=== PATIENT | male | born 1980 | race Caucasian/White ===

== ENCOUNTER 2017-04-20 16:40 | Observation (INO) | payer OTHER ==
[2017-04-20] MEDS ORDERED: ERTAPENEM 1 GM in NS 100 ML IV ONE (16:55)
[2017-04-20] MEDS ORDERED: ONDANSETRON 4 MG/2 ML VIAL IVP ONE (17:25)
[2017-04-20] MEDS ORDERED: HYDROmorphONE/DILAUDID 1 MG/ML INJ IVP ONE (17:25)
[2017-04-20] MEDS ORDERED: NS 1,000 ML IV ONE ×2 (17:25)
--- NOTE | 2017-04-20 17:29 | EDPHY ---
H & P Stated Complaint: appy. ct already done. Time Seen by Provider: 04/20/17 16:51 - Medical/Surgical History Other PMH: denies. - Social History Smoking Status: Never smoked Constitutional: Initial Vital Signs Temperature (C) 36.7 C 04/20/17 16:46 Heart Rate 92 04/20/17 16:46 Respiratory Rate 18 04/20/17 16:46 Blood Pressure 130/92 H 04/20/17 16:46 O2 Sat (%) 96 04/20/17 16:46 O2 Delivery Mode Room Air Allergies/Adverse Reactions: No Known Allergies Allergy (Unverified 04/20/17 16:48) Medical Decision Making ED Course/Re-evaluation: CHIEF COMPLAINT: Acute appendicitis HISTORY OF PRESENT ILLNESS: 36-year-old gentleman who developed right lower quadrant pain yesterday. He got some nausea but thought the pain would resolve. He presented to his primary care doctor this morning Dr. Raza Layton. Dr. Layton ordered a CT scan and he was positive for appendicitis. He has a slightly elevated white blood cell count. He has not had a anything to eat or drink today. His pain is moderate. His nausea is moderate. He has never had any abdominal surgeries. REVIEW OF SYSTEMS: A 10 point review of systems was performed and is negative with the exception of the elements mentioned in the history of present illness. PHYSICAL EXAM: HR, BP, O2 Sat, RR. Temp noted General Appearance: Alert, well hydrated, appropriate, and non-toxic appearing. Head: Atraumatic without scalp tenderness or obvious injury Eyes: Pupils equal, round, reactive to light and accommodation, EOMI, no trauma , no injection. Ears: Clear bilaterally, no perforation, normal landmarks Nose: Atraumatic, no rhinorrhea, clear. Throat: There is no erythema or exudates, no lesions, normal tonsils, mucus membranes moist. Neck: Supple, 2+ carotid upstroke, nontender, no lymphadenopathy. Respiratory: No retractions, no distress, no wheezes, and no accessory muscle use. Lungs are clear to auscultation bilaterally. Cardiovascular: Regular rate and rhythm, no murmurs, rubs, or gallops. Bilateral carotid, radial, dorsalis pedis, and posterior tibial pulses intact. Good capillary refill all extremities. Gastrointestinal: Abdomen is soft, tenderness in the right lower quadrant, non- distended, no masses, no rebound, no guarding, no peritoneal signs. Musculoskeletal: Normal active ROM of all extremities, atraumatic. Neurological: Alert, appropriate, and interactive. The patient has normal DTRs and non-focal cranial nerves, motor, sensory, and cerebellar exam. Skin: No rashes, good turgor, no nodules on palpation. Past medical history: None Past surgical history: None Family history: Noncontributory Social history: , employed, does not abuse tobacco drugs or alcohol DIAGNOSTICS/PROCEDURES/CRITICAL CARE TIME: Study: CT of the abdomen and pelvis with IV contrast Indication: right lower quadrant pain Results: CT scan of the abdomen and pelvis was obtained. The results of the study are acute appendicitis. The study was read by the radiologist, . reported to me by Raza Layton. I viewed the images myself on the PACS system. DIFFERENTIAL DIAGNOSIS: The differential diagnosis for the patient's abdominal pain included but was not limited to appendicitis, cholecystitis, hernias, testicular torsion, gastritis, and urinary tract infection. MEDICAL DECISION MAKING: This patient has acute appendicitis. He is in no distress. I have given her 2 L of fluid, 1 g of ertapenem, 1 mg of Dilaudid, 4 mg Zofran intravenously. I have paged surgery. - Data Points Medications Given: Discontinued Medications Ertapenem 1 gm/ Sodium (Chloride) 100 mls @ 200 mls/hr IV EDNOW ONE PRN Reason: Protocol Stop: 04/20/17 17:24 Last Admin: 04/20/17 17:23 Dose: 100 mls Departure - Departure Disposition: Home, Routine, Self-Care Clinical Impression: Acute appendicitis Qualifiers: Acute appendicitis type: with localized peritonitis Qualified Code(s): K35.3 - Acute appendicitis with localized peritonitis Condition: Fair Referrals: Raza Layton MD [Primary Care Provider] - As per Instructions
--- NOTE | 2017-04-20 19:21 | PDHPUP ---
History & Physical Update H&P update statement: This history and physical update is based on an assessment of the patient which was completed after admission or registration (within 24 hours), but prior to the surgery/procedure. H&P update: H&P reviewed & patient examined, no change in patient's condition since H&P completed
[2017-04-20] MEDS ORDERED: ceFAZolin 1 GM VIAL ONE (19:25)
[2017-04-20] MEDS ORDERED: BUPIVACAINE 0.5% 30 ML SDV ONE (19:25)
[2017-04-20] MEDS ORDERED: HEPARIN 1000 UNIT/1 ML MDV ONE (19:25)
--- NOTE | 2017-04-20 19:26 | PDGENHP ---
History & Physical Chief Complaint: RLQ PAIN History of Present Illness: 31 MALE WITH [address] + FOR ACUTE APPE / WBC UP/ADMIT FOR LAP APPE/ RISKS AND OPTIONS FULLY DISCUSSED Pertinent Past, Social, Family History: ORIF ANKLE/ GOUT. MEDS ALLOPURINOL. NKA. ROS -. FAM HX - Relevant Physical Exam: HEENT NONICTERIC, NO NODES. GEN AFEBRILE. CHEST CLEAR / COR RR. ABD TENDER RLQ. NO HERNIAS. EXTR OK. NEURO OK. SKIN NO LESIONS. GEN AFEBRILE Cardiorespiratory Assessment: IMPR ACUTE APPE. PLAN LAP APPE/ RISKS AND OPTIONS FULLY DISCUSSED
[2017-04-20] MEDS ORDERED: MIDAZOLAM 2 MG/2 ML VIAL IVP ONE (20:26)
--- NOTE | 2017-04-20 20:28 | PDANEPAE ---
ANE History of Present Illness lap appy for acute appendicitis ANE Past Medical History - Endocrine History Endocrine History Comment: Gout ANE Review of Systems Review of Systems: - Exercise capacity Exercise capacity: >=4 METS ANE Patient History - Allergies Allergies/Adverse Reactions: No Known Allergies Allergy (Verified 04/20/17 18:29) - Home Medications Home medications: home medication list seen and reviewed Home Medications: Allopurinol [Allopurinol 300 MG (RX)] 300 mg PO HS 04/20/17 [Last Taken 04/19/17 ] Ibuprofen [Motrin (*)] 200 - 600 mg PO DAILY PRN 04/20/17 [Last Taken Unknown] Naproxen Sodium [Aleve 220 MG (*)] 220 mg PO BID PRN 04/20/17 [Last Taken Unknown] - NPO status NPO Status: no food or drink >8 hours NPO Since - Liquids (Date): 04/20/17 NPO Since - Liquids (Time): 08:00 NPO Since - Solids (Date): 04/20/17 NPO Since - Solids (Time): 09:00 - Anes Hx Anes Hx: no prior problems - Smoking Hx Smoking Status: Never smoked - Alcohol Use Alcohol Use: Occasionally - Family Anes Hx Family Anes Hx: none ANE Labs/Vital Signs - Vital Signs Blood Pressure: 128/84 Heart Rate: 78 Respiratory Rate: 16 O2 Sat (%): 97 Height: 175.26 cm Weight: 90.718 kg ANE Physical Exam - Airway Neck exam: FROM Mallampati Score: Class 1 Mouth exam: normal dental/mouth exam - Pulmonary Pulmonary: no respiratory distress - Cardiovascular Cardiovascular: regular rate and rhythym - ASA Status ASA Status: II, E ANE Anesthesia Plan Anesthesia Plan: general endotracheal anesthesia (R/B/A explained and agrees to proceed)
[2017-04-20] MEDS ORDERED: PROPOFOL/EMULSION 500 MG/50 ML BOTTLE IV ONE (20:35)
[2017-04-20] MEDS ORDERED: fentaNYL 100 MCG/2 ML INJ ONE (20:35)
--- NOTE | 2017-04-20 20:36 | POSTOPPROG ---
Post Op Note Date of Operation: 04/20/17 Surgeon: James Acosta Anesthesiologist: MICHAEL Anesthesia: GET(General Endotracheal) Pre-op Diagnosis: ACUTE APPE Post-op Diagnosis: SAME Indication: PAIN Procedure: LAP APPE Findings: ACUTE, NONPERFORATED APPE Inf/Abcess present in the surg proc area at time of surgery?: Yes Depth: Organ Space EBL: Minimal Complications: 0 Specimen(s): APPENDIX
[2017-04-20] MEDS ORDERED: DEXAMETHASONE 4 MG/ML VIAL ONE ×2 (20:37)
[2017-04-20] MEDS ORDERED: LIDOCAINE 2% 100 MG/5 ML SYR ONE (20:37)
[2017-04-20] MEDS ORDERED: ROCURONIUM 50 MG/5 ML VIAL ONE (20:37)
[2017-04-20] MEDS ORDERED: ONDANSETRON 4 MG/2 ML VIAL ONE (20:37)
[2017-04-20] MEDS ORDERED: KETOROLAC 30 MG/1 ML SDV ONE (20:37)
[2017-04-20] MEDS ORDERED: LIDOCAINE HCL 160 MG/4 ML LTA KIT TP ONE (20:38)
[2017-04-20] MEDS ORDERED: SUGAMMADEX SODIUM 200 MG/2 ML VIAL IVP ONE (21:26)
[2017-04-20] MEDS ORDERED: MEPERIDINE 25 MG/ML SYR IVP PRN (21:36)
[2017-04-20] MEDS ORDERED: ACETAMINOPHEN 500 MG TAB PO PRN (21:36)
[2017-04-20] MEDS ORDERED: LABETALOL HCL 5 MG/ML 20 ML MDV IVP PRN (21:36)
[2017-04-20] MEDS ORDERED: ONDANSETRON 4 MG/2 ML VIAL IVP PRN (21:36)
[2017-04-20] MEDS ORDERED: LR 500 ML IV PRN (21:36)
[2017-04-20] MEDS ORDERED: METOCLOPRAMIDE 10 MG/2 ML VIAL IVP PRN (21:36)
[2017-04-20] MEDS ORDERED: DEXAMETHASONE 4 MG/ML VIAL IVP PRN (21:36)
[2017-04-20] MEDS ORDERED: OXYCODONE/APAP 5/325 TAB PO PRN (21:36)
[2017-04-20] MEDS ORDERED: ALBUTEROL 3 ML DEYVIAL IH PRN (21:36)
[2017-04-20] MEDS ORDERED: NALOXONE HCL 0.4 MG/ML INJ IVP PRN (21:36)
[2017-04-20] MEDS ORDERED: PROMETHAZINE HCL 25 MG/ML INJ IVP PRN (21:36)
[2017-04-20] MEDS ORDERED: HYDROCODONE/APAP 5/325 TAB PO PRN (21:36)
--- NOTE | 2017-04-20 21:51 | POSTANESTH ---
Post Anesthetic Evaluation Cardiovascular Status: Normal, Stable Respiratory Status: Normal, Stable Level of Consciousness/Mental Status: Can Participate in Eval Pain Control: Adequate, Prn Tx Ordered Nausea/Vomiting Control: Adequate, Prn Tx Ordered Complications Possibly Related to Anesthesia: None Noted
[2017-04-20] MEDS: fentaNYL 100 MCG/2 ML INJ IVP PRN ×2 (21:54→21:59)
[2017-04-20] MEDS ORDERED: D5W 1/2 NS W/ 20 KCl/L 1,000 ML IV SCH (22:00)
[2017-04-20] MEDS: HYDROmorphONE/DILAUDID 1 MG/ML INJ IVP PRN (22:56)
[2017-04-21] MEDS: KETOROLAC 15 MG/1 ML SDV IVP SCH ×3 (00:28→11:31)
[2017-04-21] MEDS ORDERED: ERTAPENEM 1 GM in NS 100 ML IV SCH (09:00)
[2017-04-21] MEDS: OXYCODONE/APAP 5/325 TAB PO PRN ×2 (09:13→13:11)
--- NOTE | 2017-04-21 10:50 | SOAPPROG ---
SOAP Progress Note Assessment/Plan: Assessment: DOING WELL/ AFEBRILE/ WOUNDS OK/ ABD SOFT/ EATING Plan:HOME 04/21/17 10:50 Objective: Vital Signs Temp Pulse Resp BP Pulse Ox 36.7 C 69 15 106/61 96 04/21/17 07:56 04/21/17 07:56 04/21/17 07:56 04/21/17 07:56 04/21/17 07:56 04/20/17 04/21/17 04/22/17 05:59 05:59 05:59 Intake Total 3300 Output Total 27 Balance 3273 ICD10 Worksheet Patient Problems: Problems Problem Status Onset Acute appendicitis Acute
[2017-04-21 11:23] VITALS: BP 113/56; PULSE 79; RESP 18; TEMP 97.9; O2SAT 94
[2017-04-21] MEDS: HYDROmorphONE/DILAUDID 1 MG/ML INJ IVP PRN (12:14)
--- NOTE | 2017-04-21 15:11 | ASDISCHSUM ---
Discharge Information Plan Status:Home with No Needs Medically Cleared to Leave:04/21/2017 Discharge Date:04/21/2017 01:23 PM CM D/C Disposition: ADT D/C Disposition:Home, Routine, Self-Care Projected Discharge Date:04/21/2017 12:00 AM Transportation at D/C: Discharge Delay Reason: Follow-Up Date:04/21/2017 12:00 AM Discharge Slot: Final Diagnosis: Placement Information Patient Contact Information Contact Name:JOHN Relationship: Address: Home Phone: Work Phone: City: Alternate Phone: State/CardioLogs Code: Email: Financial Information Financial Class:HMO and PPO Plans Primary Plan Desc:[facility] Primary Plan Number:[id number] Secondary Plan Desc: Secondary Plan Number: Assessment Information Intervention Information
[2017-04-21] MEDS ORDERED: ALLOPURINOL 300 MG TAB PO SCH (21:00)
== END 2017-04-21 13:23 | disposition home or self-care (01) ==
LOC: F3E 22:25
PROVIDERS: ADMIT Surgery; ATTEND Surgery
PROC: 0DTJ4ZZ Resection of Appendix, Percutaneous Endoscopic Approach (ICD-10-PCS; principal; 2017-04-20 19:00)
DX: K35.80 Unspecified acute appendicitis (principal); I42.2 Other hypertrophic cardiomyopathy; M10.9 Gout, unspecified
CPT/HCPCS: 44970; G0378; 96365; J0690; J1100; J1170; J1335; J1885; J2001; J2250; J2405; J2704; J3010

== ENCOUNTER → 2017-04-20 | Outpatient (CLI) | payer OTHER ==
[~2017-04-20] MED LIST: IOPAMIDOL (ISOVUE-300) 100 ML BTL ONE; fentaNYL 100 MCG/2 ML INJ ONE
== END ==
LOC: CIMAGING 13:47
PROVIDERS: ATTEND Internal Medicine
DX: K37 Unspecified appendicitis (principal)
CPT/HCPCS: 74177-PO; J3010; Q9967

== ENCOUNTER 2017-09-02 13:00 | Observation (INO) | payer OTHER ==
--- NOTE | 2017-10-12 08:47 | PDANEPAE ---
ANE History of Present Illness UPP ANE Past Medical History - Cardiovascular History Hx Hypertension: No Hx Arrhythmias: No Hx Chest Pain: No Hx Coronary Artery / Peripheral Vascular Disease: No Hx CHF / Valvular Disease: No Hx Palpitations: No Cardiovascular History Comment: Hypertrophic cardiomyopathy - Pulmonary History Hx COPD: No Hx Asthma/Reactive Airway Disease: No Hx Recent Upper Respiratory Infection: No Hx Oxygen in Use at Home: No Hx Sleep Apnea: Yes Sleep Apnea Screening Result - Last Documented: Positive Pulmonary History Comment: Severe CELINA does not use CPAP - Neurologic History Hx Cerebrovascular Accident: No Hx Seizures: No Hx Dementia: No - Endocrine History Hx Diabetes: No Obesity: mild Endocrine History Comment: Gout - Renal History Hx Renal Disorders: No - Liver History Hx Hepatic Disorders: No - Neurological & Psychiatric Hx Hx Neurological and Psychiatric Disorders: No - Cancer History Hx Cancer: No - Congenital Disorder History Hx Congenital Disorders: No - GI History GERD: mild Hx Gastrointestinal Disorders: Yes Gastrointestinal History Comment: GERD - Other Health History Other Health History: none - Chronic Pain History Chronic Pain: No - Surgical History Prior Surgeries: Appendectomy 2017 ANE Review of Systems Review of Systems: - Exercise capacity METS (RN): 4 METS - Systems Respiratory: Reports: other ANE Patient History - Allergies Allergies/Adverse Reactions: No Known Allergies Allergy (Verified 10/09/17 12:36) - Home Medications Home Medications: Allopurinol [Allopurinol 300 MG (RX)] 300 mg PO HS 04/20/17 [Last Taken 10/11/17 ] Finasteride [Propecia] 1 mg PO HS 08/14/17 [Last Taken 10/11/17] Multivitamins [Multivitamin (*)] 1 each PO DAILY 08/14/17 [Last Taken 10/05/17] [place]-3 Fatty Acids [Fish Oil 1000 mg (*)] 1,000 mg PO DAILY 08/14/17 [Last Taken 10/05/17] - NPO status NPO Status: no food or drink >8 hours - Smoking Hx Smoking Status: Never smoked - Family Anes Hx Family Hx Anesthesia Complications: none ANE Labs/Vital Signs - Vital Signs Height: 175.26 cm Weight: 88.451 kg ANE Physical Exam - Airway Mallampati Score: Class 1 Mouth exam: normal dental/mouth exam - Pulmonary Pulmonary: no respiratory distress, no rales or rhonchi - Cardiovascular Cardiovascular: regular rate and rhythym, no murmur, rub, or gallop ANE Anesthesia Plan Anesthesia Plan: general endotracheal anesthesia
--- NOTE | 2017-10-12 08:54 | PDGENHP ---
History and Physical - Chief Complaint CELINA - History of Present Illness CELINA with elongated soft palate and lingual tonsil hypertrophy. History Information - Allergies/Home Medication List Allergies/Adverse Reactions: No Known Allergies Allergy (Verified 10/09/17 12:36) Home Medications: Allopurinol [Allopurinol 300 MG (RX)] 300 mg PO HS 04/20/17 [Last Taken 10/11/17 ] Finasteride [Propecia] 1 mg PO HS 08/14/17 [Last Taken 10/11/17] Multivitamins [Multivitamin (*)] 1 each PO DAILY 08/14/17 [Last Taken 10/05/17] [place]-3 Fatty Acids [Fish Oil 1000 mg (*)] 1,000 mg PO DAILY 08/14/17 [Last Taken 10/05/17] I have personally reviewed and updated: family history, medical history, social history, surgical history - Past Medical History Additional medical history: Gout. Cyst near pinneal gland. R ankle hardware. Hypertrophic cardiomyopathy. Migraine. R labrum tear - Social History Smoking Status: Never smoked Review of Systems Review of Systems: ROS: 10pt was reviewed & negative except for what was stated in HPI & below Physical Exam Physical Exam: Constitutional: no apparent distress Eyes: PERRL Ears, Nose, Mouth, Throat: moist mucous membranes, ears appear normal, no oral mucosal ulcers Cardiovascular: regular rate and rhythym Respiratory: no respiratory distress, clear to auscultation Skin: warm, normal color Neurologic: AAOx3 Assessment & Plan Assessment: CELINA. Continues to be appropriate for UPPP, tonsillectomy, BOT reduction. Plan: To OR for UPPP, Tonsillectomy, BOT reduction.
[2017-10-12] MEDS ORDERED: OXYMETAZOLINE 30 ML NASAL SPRAY ONE (09:44)
[2017-10-12] MEDS ORDERED: BUPIVACAINE 0.25% 30 ML SDV ONE (09:45)
[2017-10-12] MEDS ORDERED: MIDAZOLAM 2 MG/2 ML VIAL IVP ONE (10:04)
[2017-10-12] MEDS ORDERED: ROCURONIUM 100 MG/10 ML VIAL ONE (10:16)
[2017-10-12] MEDS ORDERED: DEXAMETHASONE 4 MG/ML VIAL ONE ×3 (10:16)
[2017-10-12] MEDS ORDERED: fentaNYL 250 MCG/5 ML INJ ONE (10:16)
[2017-10-12] MEDS ORDERED: PROPOFOL/EMULSION 500 MG/50 ML BOTTLE IV ONE ×2 (10:16)
[2017-10-12] MEDS ORDERED: GLYCOPYRROLATE 0.2 MG/1 ML VIAL ONE (10:23)
[2017-10-12] MEDS ORDERED: fentaNYL 100 MCG/2 ML INJ ONE ×2 (10:38→12:19)
[2017-10-12] MEDS ORDERED: LABETALOL HCL 5 MG/ML 20 ML MDV ONE (10:46)
[2017-10-12] MEDS ORDERED: SUGAMMADEX SODIUM 200 MG/2 ML VIAL IVP ONE (11:50)
[2017-10-12] MEDS ORDERED: HYDROmorphONE/DILAUDID 2 MG/ML INJ ONE ×2 (12:01→12:19)
--- NOTE | 2017-10-12 12:02 | POSTOPPROG ---
Post Op Note Date of Operation: 10/12/17 Surgeon: Maikel Alejo Anesthesiologist: Mack Anesthesia: GET(General Endotracheal) Pre-op Diagnosis: CELINA Post-op Diagnosis: CELINA Indication: CELINA Procedure: UPPP, tongue base resection Findings: Lingual & pharyngeal tonsillar hypertrophy Inf/Abcess present in the surg proc area at time of surgery?: No Depth: Deep Incisional (Fascial) EBL: Minimal Specimen(s): Tonsils
[2017-10-12] MEDS ORDERED: HYDROCODONE/APAP 5/325 TAB PO PRN (12:14)
[2017-10-12] MEDS ORDERED: ACETAMINOPHEN 500 MG TAB PO PRN (12:14)
[2017-10-12] MEDS ORDERED: ONDANSETRON 4 MG/2 ML VIAL IVP PRN (12:14)
[2017-10-12] MEDS ORDERED: NALOXONE HCL 0.4 MG/ML INJ IVP PRN (12:14)
[2017-10-12] MEDS ORDERED: HYDROmorphONE/DILAUDID 1 MG/ML INJ IVP PRN (12:14)
[2017-10-12] MEDS ORDERED: oxyCODONE IR 5 MG TAB PO PRN (12:14)
[2017-10-12] MEDS ORDERED: LABETALOL HCL 5 MG/ML 20 ML MDV IVP PRN (12:14)
[2017-10-12] MEDS ORDERED: HYDROmorphONE/DILAUDID 2 MG/ML INJ IVP PRN (12:20)
[2017-10-12] MEDS: fentaNYL 100 MCG/2 ML INJ IVP PRN ×2 (12:21→12:26)
[2017-10-12] MEDS: D5W 1/2 NS 1,000 ML IV SCH ×2 (13:58→23:48)
[2017-10-12] MEDS: oxyCODONE ORAL SOLUTION 10 MG/0.5 ML UDSYR PO PRN ×2 (15:41→19:41)
[2017-10-13 07:22] VITALS: BP 131/86
[2017-10-13] MEDS: oxyCODONE ORAL SOLUTION 10 MG/0.5 ML UDSYR PO PRN (07:37)
--- NOTE | 2017-10-13 07:39 | SOAPPROG ---
SOAP Progress Note Assessment/Plan: Assessment: S/P 10/13/17 UPPP && BOT resection. Reasonable post op pain control. Tolerating liquids. Plan: Home today Follow up in 3 weeks Liquid diet, ADAT to soft See discharge instructions sheets 10/13/17 07:36 Subjective: C/O throat pain. Tolerating liquids. Objective: Vital Signs Temp Pulse Resp BP Pulse Ox 36.9 C 98 18 131/86 H 91 L 10/13/17 07:21 10/13/17 07:21 10/13/17 07:21 10/13/17 07:21 10/13/17 07:21 10/12/17 10/13/17 10/14/17 05:59 05:59 05:59 Intake Total 1205 Output Total 20 Balance 1185 - Pending Discharge Pending Discharge Within 24 Hours: Yes Pending Discharge Date: 10/14/17 Pending Discharge Time: 11:00 Physical Exam - Physical Exam General Appearance: alert, mild distress EENT: PERRL/EOMI, No pharynx normal (Incisions intact. No blood/bleeding.) Neck: full range of motion, normal inspection Respiratory: No respiratory distress, No stridor, No wheezing Neuro/Psych: no motor/sensory deficits, alert, normal mood/affect ICD10 Worksheet Patient Problems: Problems Problem Status Onset Acute appendicitis Acute
== END 2017-10-13 09:34 | disposition home or self-care (01) ==
LOC: F3E 10-12 07:57
PROVIDERS: ADMIT Otolaryngology; ATTEND Otolaryngology
PROC: 0CB7XZZ Excision of Tongue, External Approach (ICD-10-PCS; principal; 2017-10-12 09:00)
PROC: 0CTPXZZ Resection of Tonsils, External Approach (ICD-10-PCS; principal; 2017-10-12 09:00)
PROC: 0CQ Mouth and Throat, Repair (ICD-10-PCS; principal; 2017-10-12 09:00)
DX: J03.90 Acute tonsillitis, unspecified (principal); J34.89 Other specified disorders of nose and nasal sinuses; J34.2 Deviated nasal septum; G47.33 Obstructive sleep apnea (adult) (pediatric); I42.2 Other hypertrophic cardiomyopathy
CPT/HCPCS: 41113; 42145; G0378; J0171; J1100; J1170; J2250; J2270; J2704; J3010

== ENCOUNTER → 2018-02-08 | Outpatient (CLI) | payer BC | LOC: CIMAGING 11:32 | PROVIDERS: ATTEND Internal Medicine | DX: R07.9 Chest pain, unspecified (principal) | CPT/HCPCS: 71111-PO ==